=== PATIENT | male | born 1985 | race Caucasian/White ===

== ENCOUNTER 2019-12-26 03:58 | Emergency (ER) | payer MEDICAID, OTHER ==
[~2019-12-26] VITALS: Ht 167.6 cm; Wt 91.0 kg
[2019-12-26] MEDS ORDERED: MORPHINE SULFATE 4 MG/ML CPJ (NOT FOR IM USE) IV STA (04:30)
[2019-12-26] MEDS ORDERED: ONDANSETRON HCL 4MG/2ML INJ IV STA (04:30)
[2019-12-26 05:38] LABS: CLARITY URINE CLEAR (CLEAR); COLOR URINE YELLOW (YELLOW); KETONES URINE NEGATIVE (NEGATIVE); LEUKOCYTE ESTERASE URINE NEGATIVE (NEGATIVE); NITRITE URINE NEGATIVE (NEGATIVE); OCCULT BLOOD URINE TRACE (NEGATIVE); PROTEIN URINE NEGATIVE (NEGATIVE); SPECIFIC GRAVITY URINE 1.028 (1.005-1.030); UROBILINOGEN URINE 0.2 E.U./dL (0.2-1.0)
[2019-12-26 05:44] LABS: BASOPHILS % 0.5 % (0.0-2.0); EOSINOPHILS % 2.3 % (0.0-5.0); HEMATOCRIT. 42.2 % (42.0-52.0); HEMOGLOBIN. 14.7 g/dL (14.0-18.0); LYMPHOCYTES % 41.7 % (20.0-50.0); MEAN CORPUSCULAR VOLUME 86.3 fL (80.0-94.0); MEAN PLATELET VOLUME 9.8 fl (7.4-10.4); MONOCYTES % 9.6 % (2.0-8.0); NEUTROPHILS % 45.9 % (40.0-76.0); PLATELET 231 x1000/uL (130-400); RED BLOOD CELL COUNT 4.88 mill/uL (4.7-6.1); RED CELL DISTRIBUTION WIDTH 13.3 % (11.6-14.6)
[2019-12-26 05:54] LABS: CHLORIDE 104 mEq/L (98-107)
[2019-12-26 08:35] VITALS: BP 106/66
== END 2019-12-26 08:45 | disposition home or self-care (01) ==
LOC: ER 04:29
DX: K80.20 Calculus of gallbladder without cholecystitis without obstruction (principal)
CPT/HCPCS: 36415; 76705; 80053; 81003; 83690; 85025; 96374; 96375; 99284; J2270; J2405

== ENCOUNTER 2021-04-07 16:17 | Emergency (ER) | payer MEDICAID | END 2021-04-07 18:49 | disposition left against medical advice (07) | LOC: ER 16:17 | DX: Z53.21 Procedure and treatment not carried out due to patient leaving prior to being seen by health care provider (principal) ==

== ENCOUNTER 2021-05-01 23:41 | Emergency (ER) | payer MEDICAID ==
[~2021-05-01] VITALS: Ht 167.6 cm; Wt 90.0 kg
[2021-05-02] MEDS ORDERED: KETOROLAC 30MG/ML VIAL IV STA (00:06)
[2021-05-02] MEDS ORDERED: MAGNESIUM/ALUMINUM HYDROXIDE/SIMETHICONE 30ML UDC PO STA (00:06)
[2021-05-02] MEDS ORDERED: SODIUM CHLORIDE 0.9% 1,000 ML IV ONE (00:15)
[2021-05-02 00:26] LABS: BASOPHILS % 0.6 % (0.0-2.0); HEMATOCRIT. 40.6 % (42.0-52.0); HEMOGLOBIN. 14.1 g/dL (14.0-18.0); LYMPHOCYTES % 27.5 % (20.0-50.0); MEAN CORPUSCULAR HEMOGLOBIN 29.7 pg (28.0-32.0); MEAN CORPUSCULAR VOLUME 85.5 fL (80.0-94.0); MEAN PLATELET VOLUME 9.2 fl (7.4-10.4); MONOCYTES % 8.4 % (2.0-8.0); NEUTROPHILS % 62.5 % (40.0-76.0); PLATELET 225 x1000/uL (130-400); RED BLOOD CELL COUNT 4.75 mill/uL (4.7-6.1); RED CELL DISTRIBUTION WIDTH 12.9 % (11.6-14.6)
[2021-05-02 00:29] LABS: CHLORIDE 104 mEq/L (98-107)
[2021-05-02 01:16] LABS: CLARITY URINE CLEAR (CLEAR); COLOR URINE YELLOW (YELLOW); KETONES URINE NEGATIVE (NEGATIVE); LEUKOCYTE ESTERASE URINE NEGATIVE (NEGATIVE); NITRITE URINE NEGATIVE (NEGATIVE); OCCULT BLOOD URINE NEGATIVE (NEGATIVE); PH URINE 8.5 (4.5-8.0); PROTEIN URINE TRACE (NEGATIVE); SPECIFIC GRAVITY URINE 1.025 (1.005-1.030)
[2021-05-02 02:07] VITALS: BP 132/80
== END 2021-05-02 02:12 | disposition home or self-care (01) ==
LOC: ER 23:41
DX: R10.13 Epigastric pain (principal); R10.33 Periumbilical pain
CPT/HCPCS: 36415; 80053; 81003; 83605; 83690; 85025; 96361; 96374; 99283; J1885; J7030

== ENCOUNTER 2021-08-09 07:56 | Emergency (ER) | payer MEDICAID ==
[~2021-08-09] VITALS: Ht 172.7 cm; Wt 85.0 kg
[2021-08-09 08:05] VITALS: BP 119/84
[2021-08-09 09:35] LABS: BASOPHILS % 0.6 % (0.0-2.0); EOSINOPHILS % 1.3 % (0.0-5.0); HEMATOCRIT. 42.7 % (42.0-52.0); HEMOGLOBIN. 14.5 g/dL (14.0-18.0); LYMPHOCYTES % 22.4 % (20.0-50.0); MEAN CORPUSCULAR VOLUME 85.2 fL (80.0-94.0); MONOCYTES % 7.1 % (2.0-8.0); NEUTROPHILS % 68.6 % (40.0-76.0); PLATELET 236 x1000/uL (130-400); RED BLOOD CELL COUNT 5.01 mill/uL (4.7-6.1); RED CELL DISTRIBUTION WIDTH 13.2 % (11.6-14.6)
[2021-08-09 09:44] LABS: CHLORIDE 110 mEq/L (98-107)
[2021-08-09 09:49] LABS: ETHANOL BLOOD < 10 mg/dL
[2021-08-09] MEDS ORDERED: VISCOUS LIDOCAINE 2% 15 ML UDC MM STA (10:41)
[2021-08-09] MEDS ORDERED: MAGNESIUM/ALUMINUM HYDROXIDE/SIMETHICONE 30ML UDC PO ONE (10:45)
[2021-08-09 11:28] LABS: CLARITY URINE CLEAR (CLEAR); COLOR URINE YELLOW (YELLOW); KETONES URINE TRACE (NEGATIVE); LEUKOCYTE ESTERASE URINE NEGATIVE (NEGATIVE); NITRITE URINE NEGATIVE (NEGATIVE); OCCULT BLOOD URINE NEGATIVE (NEGATIVE); PROTEIN URINE NEGATIVE (NEGATIVE); SPECIFIC GRAVITY URINE 1.026 (1.005-1.030); UROBILINOGEN URINE 0.2 E.U./dL (0.2-1.0)
[2021-08-09] MEDS ORDERED: ONDA4TAB11 PO (12:19)
[2021-08-09] MEDS ORDERED: TRAM50TA3 MT (12:19)
[2021-08-09] MEDS ORDERED: OMEP20CA14 MT (12:19)
== END 2021-08-09 13:10 | disposition home or self-care (01) ==
LOC: ER 07:56
DX: R10.13 Epigastric pain (principal); K29.70 Gastritis, unspecified, without bleeding; K80.50 Calculus of bile duct without cholangitis or cholecystitis without obstruction
CPT/HCPCS: 36415; 76705; 80053; 80320; 81003; 85025; 99284; G0480

== ENCOUNTER 2022-01-24 02:44 | Emergency (ER) | payer MEDICAID ==
[~2022-01-24] VITALS: Ht 167.6 cm; Wt 85.9 kg
[~2022-01-24 02:44] MED LIST: OMEP20CA14 MT; ONDA4TAB11 PO; TRAM50TA3 MT
[2022-01-24] MEDS ORDERED: SODIUM CHLORIDE 0.9% 1,000 ML IV ONE (06:00)
[2022-01-24] MEDS ORDERED: MORPHINE SULFATE 4 MG/ML CPJ (NOT FOR IM USE) IV STA (06:00)
[2022-01-24] MEDS ORDERED: PANTOPRAZOLE SODIUM 40 MG/VIAL IV STA (06:00)
[2022-01-24] MEDS ORDERED: ONDANSETRON HCL 4MG/2ML INJ IV STA (06:00)
[2022-01-24 06:10] LABS: CLARITY URINE CLEAR (CLEAR); COLOR URINE YELLOW (YELLOW); KETONES URINE TRACE (NEGATIVE); LEUKOCYTE ESTERASE URINE NEGATIVE (NEGATIVE); NITRITE URINE NEGATIVE (NEGATIVE); OCCULT BLOOD URINE NEGATIVE (NEGATIVE); PH URINE 5.5 (4.5-8.0); PROTEIN URINE NEGATIVE (NEGATIVE); SPECIFIC GRAVITY URINE 1.033 (1.005-1.030)
[2022-01-24 06:40] LABS: BASOPHILS % 0.3 % (0.0-2.0); EOSINOPHILS % 0.2 % (0.0-5.0); HEMOGLOBIN. 14.2 g/dL (14.0-18.0); LYMPHOCYTES % 16.5 % (20.0-50.0); MEAN CORPUSCULAR HEMOGLOBIN 28.7 pg (28.0-32.0); MEAN PLATELET VOLUME 9.5 fl (7.4-10.4); MONOCYTES % 4.2 % (2.0-8.0); NEUTROPHILS % 78.8 % (40.0-76.0); PLATELET 222 x1000/uL (130-400); RED BLOOD CELL COUNT 4.94 mill/uL (4.7-6.1); RED CELL DISTRIBUTION WIDTH 13.1 % (11.6-14.6)
[2022-01-24 06:45] LABS: CHLORIDE 107 mEq/L (98-107)
[2022-01-24 08:00] VITALS: BP 120/68
[2022-01-24] MEDS ORDERED: PIPERACILLIN/TAZ 3.375G PREMIX 50 ML IV ONE (08:15)
[2022-01-24] MEDS ORDERED: IBUP-2028 MT (10:02)
[2022-01-24] MEDS ORDERED: PROT40 MT (10:02)
[2022-01-24] MEDS ORDERED: ONDA4TAB11 PO (10:02)
== END 2022-01-24 10:20 | disposition home or self-care (01) ==
LOC: ER 02:44
DX: K80.50 Calculus of bile duct without cholangitis or cholecystitis without obstruction (principal); Z87.19 Personal history of other diseases of the digestive system; Z90.49 Acquired absence of other specified parts of digestive tract; Z79.899 Other long term (current) drug therapy
CPT/HCPCS: 36415; 76705; 80053; 81003; 83690; 85025; 87040; 96361; 96365; 96375; 99284; C9113; J2270; J2405; J2543; J7030